=== PATIENT | female | born 1970 | race Caucasian/White ===

== ENCOUNTER 2017-05-11 11:39 | Inpatient (IN) | payer OTHER ==
[~2017-05-11] VITALS: Ht 160 cm; Wt 59.6 kg
[2017-05-11 12:23] LABS: CALCIUM 8.6 mg/dL (8.5-10.1); CARBON DIOXIDE 29.4 mmol/L (21-32); CHLORIDE SERUM 105 mmol/L (98-107); CREATININE SERUM 0.7 mg/dL (0.6-1.0); GFR1 > 60 mL/min; GLUCOSE SERUM 99 mg/dL (74-106); POTASSIUM SERUM 3.7 mmol/L (3.5-5.1); SODIUM SERUM 142 mmol/L (136-145)
[2017-05-11 12:25] LABS: BASOPHIL % 0.5 % (0-2); PLATELET COUNT 279 x10^3mcL (130-400); RED CELL DISTRIBUTION WIDTH 13.9 % (11.5-14.5)
[2017-05-11 12:28] LABS: ALBUMIN 4.2 g/dL (3.4-5.0); ALKALINE PHOSPHATASE 41 U/L (46-116); ALT/SGPT 27 U/L (14-59); AST/SGOT 14 U/L (15-37); BILIRUBIN TOTAL 0.5 mg/dL (0.20-1.00); TOTAL PROTEIN, SERUM 7.5 g/dL (6.4-8.2)
[2017-05-11 13:17] LABS: PHOSPHOROUS 3.6 mg/dL (2.5-4.9)
[2017-05-11 13:20] VITALS: BP 170/93
[2017-05-11 13:22] LABS: T3 TOTAL 1.03 ng/mL
[2017-05-11 13:27] LABS: FREE T4 0.89 ng/dL (0.76-1.46); FREE THYROXINE INDEX 2.6 ug/dL (1.4-4.5)
[2017-05-11] MEDS ORDERED: IBUPROFEN400 MG PO (13:28)
[2017-05-11 17:19] VITALS: BP 130/80
[2017-05-11 18:29] LABS: microscopic required? NO
[2017-05-11 18:37] LABS: urine erythrocyte NEGATIVE (NEGATIVE)
[2017-05-11 18:55] LABS: AMPHETAMINE QUAL UR NONE DETECTED (NEG <=1000)
[2017-05-11 19:50] VITALS: BP 112/71
[2017-05-12 05:52] VITALS: BP 127/75
[2017-05-12 06:29] LABS: BASOPHIL % 0.5 % (0-2); PLATELET COUNT 221 x10^3mcL (130-400)
[2017-05-12 07:51] LABS: CARBON DIOXIDE 27.9 mmol/L (21-32); CHLORIDE SERUM 108 mmol/L (98-107); POTASSIUM SERUM 3.8 mmol/L (3.5-5.1); SODIUM SERUM 141 mmol/L (136-145)
[2017-05-12 07:52] LABS: CALCIUM 8.1 mg/dL (8.5-10.1); CREATININE SERUM 0.7 mg/dL (0.6-1.0); GFR1 > 60 mL/min; GLUCOSE SERUM 96 mg/dL (74-106)
[2017-05-12 08:43] VITALS: BP 154/74
[2017-05-12 12:39] VITALS: BP 157/83
[2017-05-12 16:47] VITALS: BP 140/85
[2017-05-12 21:11] VITALS: BP 142/82
[2017-05-13 06:01] VITALS: BP 144/88
[2017-05-13 10:40] VITALS: BP 141/86
[2017-05-13] MEDS ORDERED: ZES5 PO (13:37)
[2017-05-13 14:53] VITALS: BP 140/82
[2017-05-13 17:05] VITALS: BP 140/82
== END 2017-05-13 17:17 | disposition home or self-care (01) | DRG 203 ==
LOC: ED 11:39 → DU 12:24
PROVIDERS: Emergency Medicine; ADMIT Student in an Organized Health Care Education/Training Program
DX: M94.0 Chondrocostal junction syndrome [Tietze] (principal); E83.51 Hypocalcemia; I10 Essential (primary) hypertension; R00.1 Bradycardia, unspecified; E78.5 Hyperlipidemia, unspecified; E78.00 Pure hypercholesterolemia, unspecified; G43.909 Migraine, unspecified, not intractable, without status migrainosus; J45.909 Unspecified asthma, uncomplicated; Z68.23 Body mass index [BMI] 23.0-23.9, adult; Z79.1 Long term (current) use of non-steroidal anti-inflammatories (NSAID); Z90.710 Acquired absence of both cervix and uterus; Z98.51 Tubal ligation status; Z83.3 Family history of diabetes mellitus; Z82.49 Family history of ischemic heart disease and other diseases of the circulatory system; I16.0 Hypertensive urgency
CPT/HCPCS: 82962; 83880; 84439; J1885; J7030